=== PATIENT | female | born 1950 | race Caucasian/White ===

== ENCOUNTER → 2018-05-22 09:27 | Outpatient (CLI) | payer MEDICARE, SELFPAY ==
--- NOTE | 2018-05-22 09:35 | BI_ITS ---
MAMMOGRAPHY - BILATERAL DIAGNOSTIC REASON FOR EXAM: Female, 68 years old. Right breast lump felt by patient 1 week ago. PERTINENT HISTORY: Non-contributory. Prior mammogram 1997 [place], [place] no longer available. TECHNIQUE: Digital examination. Mediolateral oblique (MLO) and craniocaudad (CC) views of both breasts were obtained. CAD: Yes COMPARISON: None available. If prior mammograms become available, an addendum can be placed after comparison. FINDINGS: Breast Composition: There are scattered areas of fibroglandular density. There is a dominant mass with innumerable internal suspicious microcalcifications in the right breast upper outer quadrant approximate 3.6 cm from the nipple which is considered carcinoma until proven otherwise approximate 2.2 x 2.2 x 2.7 cm and show spiculated margins. Same lesion shows architectural distortion. Slightly more superior posterior and lateral lymph node is approximate 1.2 x 0.9 x 1.15 cm suspicious for metastatic adenopathy. Right subareolar diffuse increased density is also seen with increased interstitial markings, and appears associated with skin thickening superior to the nipple, cannot exclude infiltrative neoplasm. Left breast upper outer quadrant shows rounded set of 2 lymph nodes, largest is approximate 0.9 x 0.8 x 0.9 cm. No nipple retraction identified laterally. BI/DIAG MAMM W/CAD, BILAT IMPRESSION: Findings highly suggestive of malignancy, as described above. Biopsy highly recommended. (H) If clinically indicated, MRI breasts may be more helpful to identify synchronous and/or metachronous malignancy bilaterally. ASSESSMENT CATEGORY: BIRADS 5-HIGHLY SUSPICIOUS OF MALIGNANCY FOLLOW UP RECOMMENDATION: Surgical Biopsy Recommended. (G) A palpable lesion should be followed on clinical grounds and biopsy performed if clinically persistent for greater than 3 months or increasing size. Clinical correlation is required including right and left breast. Approximately 10% of breast cancers are not detected by mammography. A normal mammogram should not delay biopsy of a clinically suspicious abnormality. Electronically Signed: Peterson Sandy, at 12:15 EDT Tel , Service support ,
== END ==
PROVIDERS: Visit Provider Obstetrics & Gynecology
DX: N63.12 Unspecified lump in the right breast, upper inner quadrant (principal)
CPT/HCPCS: 77062; 77066; G0279

== ENCOUNTER → 2018-05-26 10:11 | Outpatient (CLI) | payer MEDICARE, SELFPAY ==
--- NOTE | 2018-05-26 | IMM_PTH ---
PATIENT: TWILA WHATLEY LOC: OPUS U#:[id number] AGE/SX: 75/F ROOM: RE05/26/[address]: Dr. Kenny Cohen MD : 1950 BED: DIS: SPEC #: [id number] RECD: 05/28/18 12:31 STATUS: ROLDAN REVerna #: [id number] MICHAEL: 05/26/18 00:[address]: Kenny Cohen DEPT: IMMUNOHISTOCHEMISTRY RECD BY: Daisy Castañeda ENTERED: 05/28/18 12:34 SP TYPE: IMMUNO OTHR DR: No Primary Care Phys Tissues: Right breast, NOS Procedures: CALPONIN-1 (add) CK5-6 (add) CK8 (add) HER2 EFRAIN (add) KI-67 (add) P53 (add) MI (add) P40 (add) ER (initial) PHYSICIAN & INSTITUTION [place] [id number] SPECIMEN INFORMATION: Tissue Source: Right breast Clinical Info: Right breast mass Specimen Number: [id number] CPT code: 45390, 85357 x6, 89906 x3 METHODOLOGY: Deparaffinized sections of prefer/formalin-fixed tissue or PAP/DQ stained slides are incubated with monoclonal/polyclonal antibodies/oligonucleotide probes. Localization is made via biotin free immunoperoxidase method. Appropriate controls are performed and reacted as expected. Results on target cell population are indicated in the following table: RESULTS: ANTIBODY / CLONE RESULT E-Cad (ECH-6) positive CK8 (02pljnP49) positive CK5-6 (D5 & 1684) negative Ki-67 (30-9) positive, moderate P53 (DO-7) positive, focal and weak P40 (BC28) negative Calponin-1 (PY624U) negative MORPHOMETRIC ANALYSIS ER (clone 6F11) 0% MI (clone 16/1E2) 16%, weak Her-2Neu (clone CB11) 3+ The prognostic test for HER2 is performed on formalin-fixed paraffin embedded tissue. A 3+ (positive) staining pattern is defined as intense, homogeneous, complete, circumferential membranous staining in >10% of contiguous tumor cells. A similar weak (2+) staining pattern is interpreted as equivocal. LOWELL follow-up testing is recommended for all equivocal cases. Positivity/negativity for ER/MI is reported if > or < 1% of the tumor cells are immuno- reactive, respectively. The ASCO/CAP criteria is used for scoring. Reference: Journal of Clinical Oncology, 2013; 31:5405-1625 & 2010; 16:5851-3407. Duration of fixation: 29.5 Hrs; Sample Adequate: Yes. These assays have not been validated on decalcified tissues. Results should be interpreted with caution given the likelihood of false negativity on decalcified specimens. These tests were developed and their performance characteristics determined by [facility]. They may not have been cleared or approved by the U.S. Food and Drug Administration. The FDA has determined that such clearance or approval is not necessary. INTERPRETATION: Right breast tissue, core biopsy: Invasive ductal carcinoma, nuclear grade 2. Negative for estrogen receptors (unfavorable prognostic indicator). Positive for progesterone receptors (favorable prognostic indicator). Positive for overexpression of FXW1acp. SJ:luiza 05/29/18
--- NOTE | 2018-05-26 13:30 | BRBX_PTH ---
PATIENT: TWILA WHATLEY LOC: OPUS U#:[id number] AGE/SX: 75/F ROOM: RE05/26/[address]: Dr. Kenny Cohen MD : 1950 BED: DIS: SPEC #: [id number] RECD: 05/26/18 17:16 STATUS: ROLDAN REQ #: [id number] MCIHAEL: 05/26/18 13:[address]: Kenny Cohen DEPT: SURGICAL PATHOLOGY RECD BY: Sebastián Todd ENTERED: 05/27/18 09:52 SP TYPE: BREAST BX OTHR DR: No Primary Care Phys Tissues: Right breast, NOS Procedures: Surgery Specimen Level IV Comments: @ Originally on account #[id number] Req #[id number] HEADER OPERATION: Right breast mass PRE-OP DIAGNOSIS: Right breast mass TISSUE SUBMITTED: Right breast tissue ISCHEMIC TIME: 5 seconds FIXATION TIME: 29.5 hours MICROSCOPIC DIAGNOSIS Right breast tissue, core biopsy: Invasive ductal carcinoma, nuclear grade 2 (1.2 cm in greatest length). See comment. Focal microcalcifications. ANGIE:luiza 05/28/18 COMMENT Immunohistochemistry ([id number]) supports the above diagnosis. ER/MN/Lvv8zkx studies are being performed on sections of tumor and the results from this study will be reported separately ([id number]). Case has been reviewed in consultation with Dr. Segovia who concurs with the above diagnosis. IDC:AM MICROSCOPIC DESCRIPTION Slides are reviewed. GROSS DESCRIPTION Received in fixative is one container labeled with the patient's name and designated right breast. The specimen consists of two elongated cores of palmer tissue. Each core has an average length of 2 cm and maximal diameter of <0.1 cm. The specimen is totally submitted in one cassette. / AM:luiza 05/27/18 TC:0 CPT: 04335 ADDENDUM ADDENDUM ADDENDUM ADDENDUM ADDENDUM ADDENDUM ADDENDUM ADDENDUM ADDENDUM ADDENDUM ADDENDUM 07/08/2018 09:53 ADDENDUM 07/08/2018 09:53 ADDENDUM 07/08/2018 09:53 ADDENDUM 07/08/2018 09:53 ADDENDUM 07/08/2018 09:53 This addendum is added to incorporate an outside pathology consultation report. The case was examined at [facility] (#[id number]) and the following diagnosis was rendered. Right breast tissue, core biopsy: Invasive ductal carcinoma, nuclear grade 2. Ductal carcinoma in situ, intermediate grade, solid type. Please see complete above mentioned consultation report in EMR
== END ==
PROVIDERS: Visit Provider Surgery
DX: N63.10 Unspecified lump in the right breast, unspecified quadrant (principal); R92.8 Other abnormal and inconclusive findings on diagnostic imaging of breast
CPT/HCPCS: 76642; 88305; 88341; 88342